=== PATIENT | male | born 1975 | race African-American/Black ===

== ENCOUNTER 2023-04-22 15:33 | Emergency (ER) | payer MEDICAID ==
[~2023-04-22] VITALS: Ht 175.3 cm; Wt 106.6 kg
[2023-04-22 15:37] VITALS: BP 141/84; PULSE 72; RESP 20; O2SAT 97
== END 2023-04-22 19:27 | disposition left against medical advice (07) ==
LOC: ER 15:33
DX: I10 Essential (primary) hypertension (principal); Z53.21 Procedure and treatment not carried out due to patient leaving prior to being seen by health care provider